=== PATIENT | female | born 1970 | race Caucasian/White ===

== ENCOUNTER 2019-12-02 22:22 | Emergency (ER) | payer OTHER ==
[~2019-12-02] VITALS: Ht 172.7 cm; Wt 2.5 kg
[2019-12-02 23:27] LABS: Basophils # (auto) 0 10 ^3/uL (0-0.2); Basophils % (auto) 0.4 % (0.0-2.0); Eosinophils # (auto) 0 10 ^3/uL (0-0.8); Eosinophils % (auto) 0.4 % (0.0-7.0); Hematocrit 46.8 % (36.0-46.0); Hemoglobin 16.5 g/dL (12.2-16.2); Lymphocytes # (auto) 1.3 10 ^3/uL (0.4-5.4); Lymphocytes % (auto) 14.4 % (10.0-50.0); Mean Corpuscular Hemoglobin 32.6 pg (28.0-32.0); Mean Corpuscular Hgb Conc. 35.3 g/dL (32.0-36.0); Mean Corpuscular Volume 92.3 fL (80.0-100.0); Monocytes # (auto) 0.5 10 ^3/uL (0-1.3); Monocytes % (auto) 5.4 % (0.0-12.0); Neutrophils # (auto) 7.3 10 ^3/uL (1.6-8.6); Neutrophils % (auto) 79.4 % (37.0-80.0); Nucleated Red Blood Cells % 0.1 %; Platelet Count (auto) 190 10^3/uL (140-450); Red Blood Cells 5.07 10^6/uL (4.0-5.20); Red Cell Distribution Width 14.4 % (11.8-14.3); White Blood Cell 9.1 10^3/uL (4.4-10.8)
[2019-12-02 23:34] LABS: INR 0.95 (0.9-1.15); Partial Thromboplastin Time 25.1 sec (23.0-31.2)
[2019-12-02 23:38] LABS: Albumin 4.1 g/dL (3.4-5.0); Anion Gap 9 (5-15); Blood Urea Nitrogen 12 mg/dL (7-18); Calcium 9.1 mg/dL (8.5-10.1); Carbon Dioxide 25 mmol/L (21-32); Chloride 100 mmol/L (98-107); Glucose 341 mg/dL (74-106); Potassium 3.3 mmol/L (3.5-5.1); Sodium 134 mmol/L (136-145)
[2019-12-02 23:40] LABS: Alanine Aminotransferase 18 U/L (13-56); Aspartate Aminotransferase 11 U/L (15-37); BUN/Creatinine Ratio 14.3; GFR African American 93 mL/min; GFR Non-African American 77 mL/min
[2019-12-02 23:45] LABS: Alkaline Phosphatase 86 U/L (45-117); Bilirubin, Total 0.7 mg/dL (0.2-1.0); Total Protein 7.7 g/dL (6.4-8.2)
[2019-12-03 03:12] VITALS: BP 147/85
== END 2019-12-03 03:14 | disposition home or self-care (01) ==
LOC: ER 22:27
DX: R07.89 Other chest pain (principal); I10 Essential (primary) hypertension
CPT/HCPCS: 36415; 71045; 80053; 83735; 84484; 85025; 85379; 85610; 85730; 93005

== ENCOUNTER 2020-11-18 12:13 | Inpatient (IN) | payer OTHER ==
[~2020-11-18] VITALS: Ht 172.7 cm; Wt 67.6 kg
[2020-11-18] MEDS ORDERED: SODIUM CHLORIDE 0.9% 1,000 ML IV ONE ×2 (12:30)
[2020-11-18] MEDS ORDERED: InsuLIN REG 1unit/0.01ml Soln (100units/ml) IV ONE (12:30)
[2020-11-18] MEDS ORDERED: PROCHLORPERAZINE EDISYLATE 5 MG/ML 2ML VIAL IV ONE (12:30)
[2020-11-18] MEDS ORDERED: LABETALOL HCL 5 MG/ML 4ML SYRINGE IV ONE ×2 (13:30→18:15)
[2020-11-18] MEDS ORDERED: MORPHINE SULFATE 4 MG/ML SYR/VIAL IV ONE (13:45)
[2020-11-18 13:48] LABS: Eosinophils # (auto) 0 10 ^3/uL (0-0.8); Mean Corpuscular Volume 94.6 fL (80.0-100.0); Monocytes # (auto) 0.1 10 ^3/uL (0-1.3); Red Cell Distribution Width 13.9 % (11.8-14.3)
[2020-11-18 13:49] LABS: Basophils # (auto) 0 10 ^3/uL (0-0.2); Basophils % (auto) 0.2 % (0.0-2.0); Hemoglobin 19.4 g/dL (12.2-16.2); Lymphocytes # (auto) 0.4 10 ^3/uL (0.4-5.4); Lymphocytes % (auto) 2.4 % (10.0-50.0); Mean Corpuscular Hemoglobin 31.8 pg (28.0-32.0); Mean Corpuscular Hgb Conc. 33.6 g/dL (32.0-36.0); Monocytes % (auto) 0.6 % (0.0-12.0); Neutrophils # (auto) 15.1 10 ^3/uL (1.6-8.6); Neutrophils % (auto) 96.8 % (37.0-80.0); Nucleated Red Blood Cells % 0.1 %; White Blood Cell 15.6 10^3/uL (4.4-10.8)
[2020-11-18 13:51] LABS: Hematocrit 57.7 % (36.0-46.0)
[2020-11-18 14:08] LABS: Urine Bacteria NONE SEEN /hpf (None Seen); Urine Blood 2+ /uL (Negative); Urine Hyaline Cast FEW /lpf (0 - 2); Urine Mucus FEW (None Seen); Urine Specific Gravity 1.021 (1.001-1.035); Urine WBC 1 /hpf (0 - 5)
[2020-11-18 14:08] LABS: Albumin 4.5 g/dL (3.4-5.0); Calcium 9.2 mg/dL (8.5-10.1); Potassium 3.7 mmol/L (3.5-5.1)
[2020-11-18 14:12] LABS: Bilirubin, Total 0.6 mg/dL (0.2-1.0); Total Protein 8.8 g/dL (6.4-8.2)
[2020-11-18] MEDS ORDERED: SODIUM BICARBONATE 8.4 % INJ 50ML VIAL IV ONE (14:15)
[2020-11-18] MEDS ORDERED: INSULIN LANTUS (GLARGINE) 1 /0.01ml (100units/ml) SC ONE ×2 (14:15→15:30)
[2020-11-18] MEDS ORDERED: InsuLIN R (HUMAN) 100 UNITS in SODIUM CHL 0.9% 99 ML IV SCH (14:15)
[2020-11-18] MEDS ORDERED: DEXTROSE (50%) 50ML SYRG IV PRN ×2 (14:15→15:45)
[2020-11-18 14:44] LABS: BUN/Creatinine Ratio 20.6
[2020-11-18] MEDS ORDERED: ACCU-CHEK COMFORT CURVE STRIP VI SCH (15:00)
[2020-11-18] MEDS ORDERED: MORPHINE SULF INJ 2 MG/ML SYRINGE 1ML IV PRN ×2 (15:30→15:45)
[2020-11-18] MEDS ORDERED: NITROGLYCERIN 0.4 MG SL TAB SL PRN (15:30)
[2020-11-18] MEDS ORDERED: HYDROmorphone HCL 2 MG/ML VL IV PRN (15:45)
[2020-11-18] MEDS ORDERED: PANTOPRAZOLE 40 MG/10 ML VIAL INJ IV ONE (15:45)
[2020-11-18 16:22] LABS: BUN/Creatinine Ratio 23.6; Calcium 8.9 mg/dL (8.5-10.1); Potassium 3.1 mmol/L (3.5-5.1)
[2020-11-18] MEDS: InsuLIN R (HUMAN) 100 UNITS in SODIUM CHL 0.9% 99 ML IV SCH ×3 (16:23→19:52)
[2020-11-18] MEDS: ACCU-CHEK COMFORT CURVE STRIP VI SCH ×4 (16:23→22:24)
[2020-11-18 16:29] LABS: Amylase 309 U/L (25-115)
[2020-11-18 16:32] LABS: Creatine Kinase IFCC 156 U/L (26-192)
[2020-11-18 16:43] LABS: Lipase 3251 U/L (73-393)
[2020-11-18] MEDS: SODIUM CHLORIDE 0.9% 1,000 ML IV SCH ×3 (16:44→21:30)
[2020-11-18] MEDS: MORPHINE SULF INJ 2 MG/ML SYRINGE 1ML IV PRN ×2 (17:16→21:20)
[2020-11-18] MEDS: PROMETHAZINE HCL 25 MG/ML 1ML IV PRN ×2 (17:16→21:20)
[2020-11-18 17:31] LABS: Alcohol, Urine < 3.0 mg/dL (0-10); Amphetamine Screen, Urine NEGATIVE (NEGATIVE); Barbiturate Scree,Urine NEGATIVE (NEGATIVE); Benzodiazephine Screen, Urine NEGATIVE (NEGATIVE); Cannabinoid Screen, Urine POSITIVE (NEGATIVE); Cocaine Screen, Urine NEGATIVE (NEGATIVE); Opiate Scree,Urine NEGATIVE (NEGATIVE); Phencyclidine Screen, Urine NEGATIVE (NEGATIVE)
[2020-11-18] MEDS ORDERED: LABETALOL HCL 5 MG/ML 4ML SYRINGE IV PRN (18:15)
[2020-11-18] MEDS ORDERED: SODIUM CHLORIDE 0.9% 1,000 ML IV SCH (19:30)
[2020-11-18] MEDS ORDERED: ATORVASTATIN 20 MG TAB PO SCH (22:00)
[2020-11-18 22:22] LABS: BUN/Creatinine Ratio 24.7
[2020-11-18] MEDS: CARVEDILOL 3.125 MG TAB PO SCH (22:28)
[2020-11-19] MEDS: MORPHINE SULF INJ 2 MG/ML SYRINGE 1ML IV PRN ×2 (01:34→06:10)
[2020-11-19] MEDS: PROMETHAZINE HCL 25 MG/ML 1ML IV PRN ×2 (01:34→06:10)
[2020-11-19] MEDS: ACCU-CHEK COMFORT CURVE STRIP VI SCH ×8 (01:37→10:17)
[2020-11-19] MEDS: SODIUM CHLORIDE 0.9% 1,000 ML IV SCH ×2 (04:18→11:39)
[2020-11-19 07:08] LABS: Albumin 3.7 g/dL (3.4-5.0); Calcium 9.3 mg/dL (8.5-10.1)
[2020-11-19 07:15] LABS: BUN/Creatinine Ratio 22.4; Bilirubin, Total 0.8 mg/dL (0.2-1.0); Total Protein 7.4 g/dL (6.4-8.2)
[2020-11-19 07:26] LABS: Potassium 2.9 mmol/L (3.5-5.1)
[2020-11-19] MEDS ORDERED: POTASSIUM CHL 20 Meq TABLET PO ONE (07:30)
[2020-11-19 07:34] LABS: Basophils # (auto) 0.1 10 ^3/uL (0-0.2); Basophils % (auto) 0.6 % (0.0-2.0); Eosinophils # (auto) 0 10 ^3/uL (0-0.8); Hematocrit 49.8 % (36.0-46.0); Lymphocytes # (auto) 1.3 10 ^3/uL (0.4-5.4); Lymphocytes % (auto) 11.1 % (10.0-50.0); Mean Corpuscular Hemoglobin 32.3 pg (28.0-32.0); Mean Corpuscular Hgb Conc. 36.2 g/dL (32.0-36.0); Mean Corpuscular Volume 89.3 fL (80.0-100.0); Monocytes % (auto) 8.5 % (0.0-12.0); Neutrophils # (auto) 9.2 10 ^3/uL (1.6-8.6); Neutrophils % (auto) 79.8 % (37.0-80.0); Nucleated Red Blood Cells % 0.3 %; Red Blood Cells 5.57 10^6/uL (4.0-5.20); Red Cell Distribution Width 13.8 % (11.8-14.3); White Blood Cell 11.5 10^3/uL (4.4-10.8)
[2020-11-19] MEDS ORDERED: NITROGLYCERIN 0.2MG/HR TOPICAL PATCH TD SCH (10:00)
[2020-11-19] MEDS ORDERED: PANTOPRAZOLE 40 MG/10 ML VIAL INJ IV SCH (10:00)
[2020-11-19] MEDS ORDERED: INSULIN LANTUS (GLARGINE) 1 /0.01ml (100units/ml) SC SCH ×2 (10:00)
[2020-11-19] MEDS: CARVEDILOL 3.125 MG TAB PO SCH (10:12)
[2020-11-19 10:24] LABS: BUN/Creatinine Ratio 26.5; Calcium 8.9 mg/dL (8.5-10.1)
[2020-11-19 10:30] LABS: Potassium 2.9 mmol/L (3.5-5.1)
[2020-11-19] MEDS ORDERED: POTASSIUM EFFERVESENT TAB 25 MEQ GT ONE (11:00)
[2020-11-19] MEDS ORDERED: POTASSIUM CHLORIDE 20 MEQ, LIDOCAINE 1% (LOCAL ANESTH.) 2 ML in SODIUM CHL 0.9% 100 ML IV ONE (11:00)
[2020-11-19] MEDS ORDERED: DEXTROSE (50%) 50ML SYRG IV PRN (11:15)
[2020-11-19] MEDS ORDERED: InsuLIN REG 1unit/0.01ml Soln (100units/ml) SC SCH ×2 (11:30→22:00)
[2020-11-19] MEDS ORDERED: ACCU-CHEK COMFORT CURVE STRIP VI SCH (11:30)
[2020-11-19 13:29] VITALS: BP 153/78
[2020-11-19] MEDS ORDERED: ALPR1TAB7 PO (13:31)
[2020-11-19] MEDS ORDERED: ACYC-163 PO (13:31)
[2020-11-19] MEDS ORDERED: ATOR40TA52 PO (13:31)
[2020-11-19] MEDS ORDERED: MET25T PO (13:31)
[2020-11-19] MEDS ORDERED: AMLO-496 PO (13:31)
== END 2020-11-19 14:37 | disposition home or self-care (01) | DRG 637 ==
LOC: EDBD 12:13 → ER 12:13 → TELE 15:22
PROVIDERS: ADMIT Internal Medicine; ATTEND Internal Medicine
DX: E11.10 Type 2 diabetes mellitus with ketoacidosis without coma (principal); K85.90 Acute pancreatitis without necrosis or infection, unspecified; N17.0 Acute kidney failure with tubular necrosis; Z20.822 Contact with and (suspected) exposure to COVID-19; E11.22 Type 2 diabetes mellitus with diabetic chronic kidney disease; E11.43 Type 2 diabetes mellitus with diabetic autonomic (poly)neuropathy; E78.5 Hyperlipidemia, unspecified; E87.6 Hypokalemia; I12.9 Hypertensive chronic kidney disease with stage 1 through stage 4 chronic kidney disease, or unspecified chronic kidney disease; K31.84 Gastroparesis; N18.9 Chronic kidney disease, unspecified; E66.9 Obesity, unspecified; R79.89 Other specified abnormal findings of blood chemistry; E11.65 Type 2 diabetes mellitus with hyperglycemia; E11.21 Type 2 diabetes mellitus with diabetic nephropathy; I25.2 Old myocardial infarction; Z79.84 Long term (current) use of oral hypoglycemic drugs; Z98.84 Bariatric surgery status; Z68.22 Body mass index [BMI] 22.0-22.9, adult
CPT/HCPCS: 36415; 36600; 71045; 74176; 80048; 80053; 80061; 80307; 81001; 82010; 82150; 82550; 82805; 82962; 83036; 83690; 83880; 84484; 85025; 86141; 87426; C9113; G0378; J1815; J2001; J3490

== ENCOUNTER 2022-04-28 04:03 | Inpatient (IN) | payer OTHER ==
[2022-04-28] VITALS (9 sets, daily range): BP systolic 92–148; BP diastolic 43–88
[~2022-04-28] VITALS: Ht 165.1 cm; Wt 96.0 kg
[~2022-04-28 04:03] MED LIST: ACYC-163 PO; ALPR1TAB7 PO; AMLO-496 PO; ATOR40TA52 PO; MET25T PO
[2022-04-28 05:03] LABS: Basophils # (auto) 0 10 ^3/uL (0-0.2); Basophils % (auto) 0.2 % (0.0-2.0); Eosinophils # (auto) 0 10 ^3/uL (0-0.8); Hematocrit 46.2 % (36.0-46.0); Hemoglobin 15.3 g/dL (12.2-16.2); Lymphocytes # (auto) 0.8 10 ^3/uL (0.4-5.4); Mean Corpuscular Hemoglobin 32.2 pg (28.0-32.0); Mean Corpuscular Hgb Conc. 33.1 g/dL (32.0-36.0); Mean Corpuscular Volume 97.2 fL (80.0-100.0); Monocytes # (auto) 0.2 10 ^3/uL (0-1.3); Monocytes % (auto) 2.2 % (0.0-12.0); Neutrophils # (auto) 7.5 10 ^3/uL (1.6-8.6); Neutrophils % (auto) 88.6 % (37.0-80.0); Red Blood Cells 4.75 10^6/uL (4.0-5.20); Red Cell Distribution Width 14.8 % (11.8-14.3); White Blood Cell 8.5 10^3/uL (4.4-10.8)
[2022-04-28 05:06] LABS: Albumin 4.5 g/dL (3.4-5.0); Calcium 9.6 mg/dL (8.5-10.1); Potassium 4.3 mmol/L (3.5-5.1)
[2022-04-28 05:09] LABS: Bilirubin, Total 0.9 mg/dL (0.2-1.0); Total Protein 7.4 g/dL (6.4-8.2)
[2022-04-28] MEDS ORDERED: MORPHINE SULFATE INJ 2 MG/ml SYRG IV ONE ×2 (05:15→06:15)
[2022-04-28] MEDS ORDERED: ONDANSETRON HCL 4 MG/2 ML VIAL IV ONE (05:15)
[2022-04-28] MEDS ORDERED: NITROGLYCERIN 0.4 MG SL TAB SL ONE (06:00)
[2022-04-28] MEDS ORDERED: HEPARIN SODIUM (PORCINE) 5000 UNITS/ML 1ML VIAL IV ONE (06:15)
[2022-04-28] MEDS ORDERED: DEXTROSE (50%) 50ML SYRG IV PRN ×2 (06:30→11:15)
[2022-04-28] MEDS ORDERED: MAALOX PLUS or MAALOX 30 ML PO ONE (06:30)
[2022-04-28] MEDS ORDERED: NITROGLYCERIN 0.4 MG SL TAB SL PRN ×2 (06:30)
[2022-04-28] MEDS ORDERED: LORazepam 0.5 MG TAB PO PRN (06:30)
[2022-04-28] MEDS ORDERED: MORPHINE SULFATE 4 MG/ML SYR/VIAL IV PRN (06:30)
[2022-04-28] MEDS ORDERED: MORPHINE SULFATE INJ 2 MG/ml SYRG IV PRN (06:30)
[2022-04-28] MEDS ORDERED: ACETAMINOPHEN 325 MG TAB PO PRN (06:30)
[2022-04-28] MEDS ORDERED: SODIUM CHLORIDE 0.9% 1,000 ML IV SCH (06:30)
[2022-04-28 08:00] LABS: Urine Bacteria FEW /hpf (None Seen); Urine Blood Negative /uL (Negative); Urine Specific Gravity 1.025 (1.001-1.035); Urine WBC 3 /hpf (0 - 5)
[2022-04-28] MEDS ORDERED: ACCU-CHEK COMFORT CURVE STRIP VI SCH (08:00)
[2022-04-28] MEDS ORDERED: InsuLIN REG 1unit/0.01ml Soln (100units/ml) SC SCH (08:00)
[2022-04-28] MEDS ORDERED: MIDAZOLAM HCL 2MG/2ML 2ml VIAL (1mg/ml) ONE ×3 (08:17→08:49)
[2022-04-28] MEDS ORDERED: HEPARIN SODIUM (PORCINE) 5000 UNITS/ML 1ML VIAL ONE (08:17)
[2022-04-28] MEDS ORDERED: VERAPAMIL 2.5MG/ML INJ 2ML VIAL IV ONE (08:17)
[2022-04-28] MEDS ORDERED: fentaNYL CITRATE 100 MCG/2 ML VL ONE ×2 (08:17→08:50)
[2022-04-28] MEDS ORDERED: NITROGLYCERIN 5MG/ML 10ML VIAL IV ONE (08:17)
[2022-04-28] MEDS ORDERED: ANGIOMAX 250 MG VIAL IV ONE (08:17)
[2022-04-28] MEDS ORDERED: ATROPINE SULF 1 MG/10ml SYR ONE (08:18)
[2022-04-28] MEDS ORDERED: SODIUM CHL 0.9% 100 ML ONE (08:18)
[2022-04-28] MEDS ORDERED: diphenhdrAMINE HCL 50 MG/1 ML VL ONE (08:40)
[2022-04-28] MEDS ORDERED: CLOPIDOGREL BISULFATE 75 MG TAB ONE (09:11)
[2022-04-28] MEDS ORDERED: ASPirin 81 mg TAB ONE (09:11)
[2022-04-28] MEDS: CLOPIDOGREL BISULFATE 75 MG TAB PO SCH (09:18)
[2022-04-28] MEDS: ASPirin 81 mg TAB PO SCH (09:18)
[2022-04-28] MEDS ORDERED: ENOXAPARIN SOD 80 MG/0.8ML SYRINGE SC SCH (10:00)
[2022-04-28] MEDS: METOPROLOL TARTRATE 25 MG TAB PO SCH ×2 (13:16→23:19)
[2022-04-28] MEDS: DOCUSATE SOD 100 MG CAP PO SCH (13:16)
[2022-04-28] MEDS: LISINOPRIL 5 MG TAB PO SCH (13:17)
[2022-04-28] MEDS: ACCU-CHEK COMFORT CURVE STRIP VI SCH ×3 (13:18→22:00)
[2022-04-28] MEDS: InsuLIN REG 1unit/0.01ml Soln (100units/ml) SC SCH ×3 (13:25→23:22)
[2022-04-28] MEDS: HYDROcodone-ACET 5/325MG TAB PO PRN (15:09)
[2022-04-28] MEDS: CALCIUM CARB 500 MG CHEW TAB PO PRN ×2 (18:07→23:29)
[2022-04-28] MEDS: ONDANSETRON HCL 4 MG/2 ML VIAL IV PRN (21:33)
[2022-04-28] MEDS: ATORVASTATIN 20 MG TAB PO SCH (23:18)
[2022-04-28] MEDS: ZOLPIDEM TARTRATE 5 MG TAB PO PRN (23:19)
[2022-04-29] MEDS: HYDROcodone-ACET 5/325MG TAB PO PRN ×2 (04:26→13:47)
[2022-04-29] MEDS: ONDANSETRON HCL 4 MG/2 ML VIAL IV PRN (04:51)
[2022-04-29 05:00] VITALS: BP 143/91
[2022-04-29] MEDS: InsuLIN REG 1unit/0.01ml Soln (100units/ml) SC SCH ×4 (06:19→22:32)
[2022-04-29] MEDS: ACCU-CHEK COMFORT CURVE STRIP VI SCH ×4 (06:22→21:09)
[2022-04-29 07:22] LABS: Basophils # (auto) 0 10 ^3/uL (0-0.2); Eosinophils # (auto) 0 10 ^3/uL (0-0.8); Eosinophils % (auto) 0.1 % (0.0-7.0); Hematocrit 44.1 % (36.0-46.0); Hemoglobin 15.2 g/dL (12.2-16.2); Lymphocytes # (auto) 1.3 10 ^3/uL (0.4-5.4); Lymphocytes % (auto) 10.3 % (10.0-50.0); Mean Corpuscular Hemoglobin 33.1 pg (28.0-32.0); Mean Corpuscular Hgb Conc. 34.5 g/dL (32.0-36.0); Mean Corpuscular Volume 95.8 fL (80.0-100.0); Monocytes # (auto) 0.8 10 ^3/uL (0-1.3); Monocytes % (auto) 6.3 % (0.0-12.0); Neutrophils # (auto) 10.3 10 ^3/uL (1.6-8.6); Neutrophils % (auto) 83.3 % (37.0-80.0); Red Blood Cells 4.61 10^6/uL (4.0-5.20); Red Cell Distribution Width 14.6 % (11.8-14.3); White Blood Cell 12.4 10^3/uL (4.4-10.8)
[2022-04-29 07:36] LABS: Calcium 9.8 mg/dL (8.5-10.1); Potassium 4.4 mmol/L (3.5-5.1)
[2022-04-29 07:40] LABS: BUN/Creatinine Ratio 22.8
[2022-04-29 09:00] VITALS: BP 134/66
[2022-04-29] MEDS: DOCUSATE SOD 100 MG CAP PO SCH (10:00)
[2022-04-29] MEDS: CLOPIDOGREL BISULFATE 75 MG TAB PO SCH (12:56)
[2022-04-29 12:57] VITALS: BP 120/67
[2022-04-29] MEDS ORDERED: TICAGRELOR 90 MG TAB PO ONE (13:00)
[2022-04-29] MEDS: ASPirin 81 mg TAB PO SCH (13:37)
[2022-04-29] MEDS: METOPROLOL TARTRATE 25 MG TAB PO SCH ×2 (13:38→22:16)
[2022-04-29] MEDS: LISINOPRIL 5 MG TAB PO SCH (13:38)
[2022-04-29] MEDS: PROMETHAZINE HCL 25 MG/ML 1ML IV PRN ×3 (13:40→22:16)
[2022-04-29 17:00] VITALS: BP 115/52
[2022-04-29 22:00] VITALS: BP 149/79
[2022-04-29] MEDS: TICAGRELOR 90 MG TAB PO SCH (22:15)
[2022-04-29] MEDS: ATORVASTATIN 20 MG TAB PO SCH (22:30)
[2022-04-30] MEDS: PROMETHAZINE HCL 25 MG/ML 1ML IV PRN ×5 (03:58→20:18)
[2022-04-30 05:00] VITALS: BP 134/82
[2022-04-30] MEDS: ACCU-CHEK COMFORT CURVE STRIP VI SCH ×4 (06:27→21:58)
[2022-04-30] MEDS: InsuLIN REG 1unit/0.01ml Soln (100units/ml) SC SCH ×4 (06:27→21:59)
[2022-04-30 09:00] VITALS: BP_SYST 150; BP_SYST 161; BP_DIAS 80; BP_DIAS 90
[2022-04-30] MEDS: TICAGRELOR 90 MG TAB PO SCH ×2 (09:38→21:57)
[2022-04-30] MEDS: HYDROcodone-ACET 5/325MG TAB PO PRN ×2 (09:38→16:27)
[2022-04-30] MEDS: DOCUSATE SOD 100 MG CAP PO SCH (09:38)
[2022-04-30] MEDS: LISINOPRIL 5 MG TAB PO SCH (09:39)
[2022-04-30] MEDS: METOPROLOL TARTRATE 25 MG TAB PO SCH (09:41)
[2022-04-30] MEDS: ASPirin 81 mg TAB PO SCH (09:42)
[2022-04-30 13:00] VITALS: BP 143/79
[2022-04-30 15:32] LABS: Alanine Aminotransferase 21 U/L (13-56); Albumin 3.8 g/dL (3.4-5.0); Amylase 68 U/L (25-115); Anion Gap 21 (5-15); Aspartate Aminotransferase 38 U/L (15-37); BUN/Creatinine Ratio 18.1; Blood Urea Nitrogen 15 mg/dL (7-18); Calcium 9.5 mg/dL (8.5-10.1); Carbon Dioxide 12 mmol/L (21-32); Chloride 102 mmol/L (98-107); GFR African American 93 mL/min; GFR Non-African American 77 mL/min; Glucose 178 mg/dL (74-106); Lipase 223 U/L (73-393); Potassium 4.1 mmol/L (3.5-5.1); Sodium 135 mmol/L (136-145)
[2022-04-30 15:35] LABS: Alkaline Phosphatase 78 U/L (45-117); Basophils # (auto) 0 10 ^3/uL (0-0.2); Basophils % (auto) 0.3 % (0.0-2.0); Bilirubin, Total 1.1 mg/dL (0.2-1.0); Eosinophils # (auto) 0 10 ^3/uL (0-0.8); Hematocrit 48.1 % (36.0-46.0); Hemoglobin 16.6 g/dL (12.2-16.2); Lymphocytes % (auto) 10.8 % (10.0-50.0); Mean Corpuscular Hemoglobin 33.7 pg (28.0-32.0); Mean Corpuscular Hgb Conc. 34.4 g/dL (32.0-36.0); Mean Corpuscular Volume 98.1 fL (80.0-100.0); Monocytes # (auto) 0.5 10 ^3/uL (0-1.3); Monocytes % (auto) 5.8 % (0.0-12.0); Neutrophils # (auto) 7.5 10 ^3/uL (1.6-8.6); Neutrophils % (auto) 83.1 % (37.0-80.0); Nucleated Red Blood Cells % 0.1 %; Red Blood Cells 4.91 10^6/uL (4.0-5.20); Red Cell Distribution Width 14.5 % (11.8-14.3); Total Protein 7.6 g/dL (6.4-8.2)
[2022-04-30] MEDS ORDERED: METOPROLOL TARTRATE 25 MG TAB PO ONE (16:15)
[2022-04-30] MEDS ORDERED: METOPROLOL SUCCINATE XL 50 MG TAB PO ONE (16:15)
[2022-04-30] MEDS: ALPRAZolam 0.5 MG TAB PO PRN (16:27)
[2022-04-30 17:00] VITALS: BP 141/75
[2022-04-30] MEDS: SODIUM CHLORIDE 0.9% 1,000 ML IV SCH ×2 (18:45→20:03)
[2022-04-30] MEDS: ATORVASTATIN 20 MG TAB PO SCH (21:57)
[2022-04-30] MEDS: ZOLPIDEM TARTRATE 5 MG TAB PO PRN (21:57)
[2022-04-30 22:00] VITALS: BP 142/82
[2022-05-01] MEDS: PROMETHAZINE HCL 25 MG/ML 1ML IV PRN ×4 (00:43→14:47)
[2022-05-01] MEDS: HYDROcodone-ACET 5/325MG TAB PO PRN ×4 (04:46→23:30)
[2022-05-01 05:00] VITALS: BP 109/55
[2022-05-01 05:53] LABS: Basophils # (auto) 0 10 ^3/uL (0-0.2); Basophils % (auto) 0.3 % (0.0-2.0); Eosinophils # (auto) 0 10 ^3/uL (0-0.8); Eosinophils % (auto) 0.2 % (0.0-7.0); Hematocrit 46.5 % (36.0-46.0); Hemoglobin 16.4 g/dL (12.2-16.2); Lymphocytes % (auto) 27.2 % (10.0-50.0); Mean Corpuscular Hemoglobin 33.6 pg (28.0-32.0); Mean Corpuscular Hgb Conc. 35.3 g/dL (32.0-36.0); Mean Corpuscular Volume 95.1 fL (80.0-100.0); Monocytes # (auto) 0.8 10 ^3/uL (0-1.3); Neutrophils # (auto) 4.4 10 ^3/uL (1.6-8.6); Neutrophils % (auto) 61.3 % (37.0-80.0); Nucleated Red Blood Cells % 0.1 %; Red Blood Cells 4.89 10^6/uL (4.0-5.20); Red Cell Distribution Width 14.1 % (11.8-14.3); White Blood Cell 7.2 10^3/uL (4.4-10.8)
[2022-05-01 05:59] LABS: Albumin 3.9 g/dL (3.4-5.0); Calcium 9.1 mg/dL (8.5-10.1)
[2022-05-01 06:03] LABS: BUN/Creatinine Ratio 17.7; Bilirubin, Total 1.2 mg/dL (0.2-1.0); Total Protein 6.8 g/dL (6.4-8.2)
[2022-05-01] MEDS: SODIUM CHLORIDE 0.9% 1,000 ML IV SCH ×2 (06:03→11:47)
[2022-05-01] MEDS: InsuLIN REG 1unit/0.01ml Soln (100units/ml) SC SCH ×4 (06:05→21:29)
[2022-05-01] MEDS: ACCU-CHEK COMFORT CURVE STRIP VI SCH ×4 (06:05→21:29)
[2022-05-01 09:00] VITALS: BP 147/71
[2022-05-01] MEDS: TICAGRELOR 90 MG TAB PO SCH ×2 (10:16→21:27)
[2022-05-01] MEDS: DOCUSATE SOD 100 MG CAP PO SCH (10:16)
[2022-05-01] MEDS: ASPirin 81 mg TAB PO SCH (10:16)
[2022-05-01] MEDS: METOPROLOL SUCCINATE XL 50 MG TAB PO SCH (10:17)
[2022-05-01] MEDS: LISINOPRIL 5 MG TAB PO SCH (10:17)
[2022-05-01] MEDS ORDERED: SUCRALFATE 1 GM/10 ML ORAL SUSP PO ONE (11:00)
[2022-05-01] MEDS ORDERED: PANTOPRAZOLE 40 MG/10 ML VIAL INJ IV ONE (11:00)
[2022-05-01] MEDS: SUCRALFATE 1 GM/10 ML ORAL SUSP PO SCH ×3 (11:28→21:28)
[2022-05-01 13:00] VITALS: BP 154/85
[2022-05-01 17:00] VITALS: BP 127/74
[2022-05-01] MEDS: PANTOPRAZOLE 40 MG/10 ML VIAL INJ IV SCH (21:27)
[2022-05-01] MEDS: ZOLPIDEM TARTRATE 5 MG TAB PO PRN (21:28)
[2022-05-01] MEDS: ATORVASTATIN 20 MG TAB PO SCH (21:28)
[2022-05-01 22:37] VITALS: BP 109/73
[2022-05-02] MEDS: SODIUM CHLORIDE 0.9% 1,000 ML IV SCH ×2 (00:20→06:48)
[2022-05-02 04:58] VITALS: BP 109/54
[2022-05-02 06:04] LABS: Basophils # (auto) 0 10 ^3/uL (0-0.2); Basophils % (auto) 0.3 % (0.0-2.0); Eosinophils # (auto) 0.1 10 ^3/uL (0-0.8); Eosinophils % (auto) 1.4 % (0.0-7.0); Hematocrit 40.1 % (36.0-46.0); Hemoglobin 14.2 g/dL (12.2-16.2); Lymphocytes % (auto) 36.6 % (10.0-50.0); Mean Corpuscular Hemoglobin 33.5 pg (28.0-32.0); Mean Corpuscular Hgb Conc. 35.3 g/dL (32.0-36.0); Mean Corpuscular Volume 94.9 fL (80.0-100.0); Monocytes # (auto) 0.5 10 ^3/uL (0-1.3); Monocytes % (auto) 9.2 % (0.0-12.0); Neutrophils # (auto) 2.8 10 ^3/uL (1.6-8.6); Neutrophils % (auto) 52.5 % (37.0-80.0); Red Blood Cells 4.23 10^6/uL (4.0-5.20); White Blood Cell 5.4 10^3/uL (4.4-10.8)
[2022-05-02] MEDS: SUCRALFATE 1 GM/10 ML ORAL SUSP PO SCH ×4 (06:08→22:30)
[2022-05-02] MEDS: ACCU-CHEK COMFORT CURVE STRIP VI SCH ×4 (06:09→22:38)
[2022-05-02] MEDS: InsuLIN REG 1unit/0.01ml Soln (100units/ml) SC SCH ×4 (06:10→22:39)
[2022-05-02 06:22] LABS: Calcium 8.2 mg/dL (8.5-10.1); Potassium 3.5 mmol/L (3.5-5.1)
[2022-05-02 06:23] LABS: BUN/Creatinine Ratio 15.3
[2022-05-02] MEDS: HYDROcodone-ACET 5/325MG TAB PO PRN ×2 (06:48→17:23)
[2022-05-02] MEDS: PROMETHAZINE HCL 25 MG/ML 1ML IV PRN (07:46)
[2022-05-02] MEDS ORDERED: POTASSIUM CHLORIDE 40 MEQ, LIDOCAINE 1% (LOCAL ANESTH.) 4 ML in SODIUM CHL 0.9% 250 ML IV ONE (08:30)
[2022-05-02] MEDS ORDERED: MAGNESIUM SULFATE 1GM/100ML 100 ML IV ONE (08:30)
[2022-05-02] MEDS: ASPirin 81 mg TAB PO SCH (08:38)
[2022-05-02] MEDS: TICAGRELOR 90 MG TAB PO SCH ×2 (08:38→22:30)
[2022-05-02] MEDS: DOCUSATE SOD 100 MG CAP PO SCH (08:38)
[2022-05-02] MEDS: PANTOPRAZOLE 40 MG/10 ML VIAL INJ IV SCH ×2 (08:38→22:29)
[2022-05-02] MEDS: METOPROLOL SUCCINATE XL 50 MG TAB PO SCH (08:38)
[2022-05-02] MEDS: LISINOPRIL 5 MG TAB PO SCH (08:38)
[2022-05-02] MEDS: ALPRAZolam 0.5 MG TAB PO PRN (08:38)
[2022-05-02 09:00] VITALS: BP 170/90
[2022-05-02 13:00] VITALS: BP 159/88
[2022-05-02] MEDS ORDERED: hydrALAZINE HCL 20 MG/ML VL IV PRN (14:45)
[2022-05-02 17:00] VITALS: BP 94/53
[2022-05-02 22:00] VITALS: BP 95/54
[2022-05-02] MEDS: ATORVASTATIN 20 MG TAB PO SCH (22:30)
[2022-05-02 23:30] VITALS: BP 99/66
[2022-05-03] MEDS: SODIUM CHLORIDE 0.9% 1,000 ML IV SCH (04:23)
[2022-05-03] MEDS: HYDROcodone-ACET 5/325MG TAB PO PRN (04:27)
[2022-05-03 04:29] VITALS: BP 101/50
[2022-05-03] MEDS: SUCRALFATE 1 GM/10 ML ORAL SUSP PO SCH ×2 (06:14→10:57)
[2022-05-03] MEDS: ACCU-CHEK COMFORT CURVE STRIP VI SCH ×2 (06:17→11:30)
[2022-05-03] MEDS: InsuLIN REG 1unit/0.01ml Soln (100units/ml) SC SCH ×2 (06:18→11:30)
[2022-05-03 09:03] VITALS: BP 116/72
[2022-05-03] MEDS: LISINOPRIL 5 MG TAB PO SCH (10:00)
[2022-05-03] MEDS ORDERED: MAGNESIUM OXIDE 400 MG TAB PO SCH (10:00)
[2022-05-03] MEDS ORDERED: SUCR1TAB22 PO (10:54)
[2022-05-03] MEDS ORDERED: PANT40TA2 PO (10:54)
[2022-05-03] MEDS ORDERED: PROM25TA5 PO (10:54)
[2022-05-03] MEDS: ASPirin 81 mg TAB PO SCH (10:57)
[2022-05-03] MEDS: METOPROLOL SUCCINATE XL 50 MG TAB PO SCH (10:58)
[2022-05-03] MEDS: DOCUSATE SOD 100 MG CAP PO SCH (10:58)
[2022-05-03] MEDS: TICAGRELOR 90 MG TAB PO SCH (10:58)
[2022-05-03] MEDS: PANTOPRAZOLE 40 MG/10 ML VIAL INJ IV SCH (10:58)
[2022-05-03 11:51] VITALS: BP 110/53
== END 2022-05-03 13:00 | disposition short-term general hospital (02) | DRG 246 ==
LOC: ER 04:03 → EDBD 04:03 → EDUNIT# 04:03 → TELE 06:39 → TELE-EAST 11:40
PROVIDERS: ADMIT Hospitalist; ATTEND Internal Medicine
PROC: 4A023N7 Measurement of Cardiac Sampling and Pressure, Left Heart, Percutaneous Approach (ICD-10-PCS; principal; 2022-04-28)
PROC: B2111ZZ Fluoroscopy of Multiple Coronary Arteries using Low Osmolar Contrast (ICD-10-PCS; 2022-04-28)
PROC: B2151ZZ Fluoroscopy of Left Heart using Low Osmolar Contrast (ICD-10-PCS; 2022-04-28)
PROC: 027034Z Dilation of Coronary Artery, One Artery with Drug-eluting Intraluminal Device, Percutaneous Approach (ICD-10-PCS; 2022-04-28)
PROC: B240ZZ3 Ultrasonography of Single Coronary Artery, Intravascular (ICD-10-PCS; 2022-04-28)
DX: I21.9 Acute myocardial infarction, unspecified (principal); N17.0 Acute kidney failure with tubular necrosis; E87.20 Acidosis, unspecified; I50.42 Chronic combined systolic (congestive) and diastolic (congestive) heart failure; Z20.822 Contact with and (suspected) exposure to COVID-19; E11.65 Type 2 diabetes mellitus with hyperglycemia; E78.5 Hyperlipidemia, unspecified; I11.0 Hypertensive heart disease with heart failure; E66.01 Morbid (severe) obesity due to excess calories; K29.70 Gastritis, unspecified, without bleeding; I25.10 Atherosclerotic heart disease of native coronary artery without angina pectoris; M79.7 Fibromyalgia; F41.9 Anxiety disorder, unspecified; K21.9 Gastro-esophageal reflux disease without esophagitis; Z95.5 Presence of coronary angioplasty implant and graft; Z68.33 Body mass index [BMI] 33.0-33.9, adult
CPT/HCPCS: 36415; 71045; 74176; 80048; 80053; 80061; 81001; 82150; 82962; 83036; 83605; 83690; 83735; 83880; 84443; 84484; 85025; 87426; 93005; 93306; 99152; 99153; C1874; C1887; C9113; G0378; J1815; J2001; J2250; J2405; J3490

== ENCOUNTER 2022-12-04 13:49 | Inpatient (IN) | payer OTHER ==
[~2022-12-04] VITALS: Ht 172.7 cm; Wt 102.5 kg
[~2022-12-04 13:49] MED LIST changes: -ACYC-163 PO; +ACYC1TAB2 PO; -AMLO-496 PO; +AMLO1TAB23 PO; +PANT40TA2 PO; +PROM25TA10 PO; +SUCR1TAB22 PO
[2022-12-04 14:23] LABS: Basophils # (auto) 0 10 ^3/uL (0-0.2); Basophils % (auto) 0.5 % (0.0-2.0); Eosinophils # (auto) 0.1 10 ^3/uL (0-0.8); Eosinophils % (auto) 1.6 % (0.0-7.0); Hematocrit 51.5 % (36.0-46.0); Hemoglobin 17.4 g/dL (12.2-16.2); Lymphocytes # (auto) 1.4 10 ^3/uL (0.4-5.4); Lymphocytes % (auto) 26.7 % (10.0-50.0); Mean Corpuscular Hemoglobin 32.8 pg (28.0-32.0); Mean Corpuscular Hgb Conc. 33.8 g/dL (32.0-36.0); Mean Corpuscular Volume 97.2 fL (80.0-100.0); Monocytes # (auto) 0.4 10 ^3/uL (0-1.3); Neutrophils # (auto) 3.4 10 ^3/uL (1.6-8.6); Neutrophils % (auto) 63.2 % (37.0-80.0); Nucleated Red Blood Cells % 0.3 %; Red Blood Cells 5.29 10^6/uL (4.0-5.20); Red Cell Distribution Width 14.9 % (11.8-14.3); White Blood Cell 5.4 10^3/uL (4.4-10.8)
[2022-12-04 14:41] LABS: Albumin 3.9 g/dL (3.4-5.0); Calcium 8.9 mg/dL (8.5-10.1); Potassium 3.9 mmol/L (3.5-5.1)
[2022-12-04 14:44] LABS: BUN/Creatinine Ratio 28.1 (10.0-20.0)
[2022-12-04 14:46] LABS: Total Protein 6.6 g/dL (6.4-8.2)
[2022-12-04] MEDS ORDERED: ONDANSETRON HCL 4 MG/2 ML VIAL IV ONE (15:30)
[2022-12-04] MEDS ORDERED: MORPHINE SULFATE 4 MG/ML SYR/VIAL IV ONE (15:30)
[2022-12-04 16:43] VITALS: PULSE 65
[2022-12-04 18:21] LABS: Cholesterol 117 mg/dL (< 200); Triglycerides 89 mg/dL (< 150)
[2022-12-04 18:23] LABS: HDL Cholesterol 66 mg/dL (40-59); LDL Cholesterol 49 mg/dL (< 100)
[2022-12-04 18:29] LABS: Basophils # (auto) 0 10 ^3/uL (0-0.2); Basophils % (auto) 0.7 % (0.0-2.0); Eosinophils # (auto) 0.1 10 ^3/uL (0-0.8); Eosinophils % (auto) 1.8 % (0.0-7.0); Hematocrit 51.9 % (36.0-46.0); Hemoglobin 17.6 g/dL (12.2-16.2); Lymphocytes # (auto) 1.7 10 ^3/uL (0.4-5.4); Lymphocytes % (auto) 26.7 % (10.0-50.0); Mean Corpuscular Hemoglobin 32.8 pg (28.0-32.0); Mean Corpuscular Hgb Conc. 33.9 g/dL (32.0-36.0); Mean Corpuscular Volume 96.7 fL (80.0-100.0); Monocytes # (auto) 0.4 10 ^3/uL (0-1.3); Monocytes % (auto) 6.9 % (0.0-12.0); Neutrophils % (auto) 63.9 % (37.0-80.0); Nucleated Red Blood Cells % 0.1 %; Red Blood Cells 5.36 10^6/uL (4.0-5.20); White Blood Cell 6.3 10^3/uL (4.4-10.8)
[2022-12-04] MEDS ORDERED: ATORVASTATIN 20 MG TAB PO ONE (18:30)
[2022-12-04] MEDS ORDERED: amLODIPine BESYLATE 5 MG TAB PO ONE (18:30)
[2022-12-04] MEDS ORDERED: ALPRAZolam 0.5 MG TAB PO ONE (22:00)
[2022-12-04] MEDS: MORPHINE SULFATE INJ 2 MG/ml SYRG IV PRN (23:14)
[2022-12-05] VITALS (7 sets, daily range): BP systolic 144–157; BP diastolic 57–70; PULSE 56–80; RESP 11–19; TEMP 97.7–98.1; O2SAT 93–99
[2022-12-05 03:15] LABS: Urine Bacteria NONE SEEN /hpf (None Seen); Urine Blood Negative /uL (Negative); Urine Clarity Clear (Clear); Urine Color Yellow (Yellow); Urine Protein, UAD Negative (Negative); Urine Specific Gravity 1.046 (1.001-1.035); Urine Urobilinogen Normal (Negative); Urine WBC <1 /hpf (0 - 5); Urine pH 5.5 (5.0-8.0)
[2022-12-05 04:11] LABS: Alcohol, Urine < 3.0 mg/dL (0-10); Amphetamine Screen, Urine NEGATIVE (NEGATIVE); Barbiturate Scree,Urine NEGATIVE (NEGATIVE); Benzodiazephine Screen, Urine POSITIVE (NEGATIVE); Cannabinoid Screen, Urine POSITIVE (NEGATIVE); Cocaine Screen, Urine NEGATIVE (NEGATIVE)
[2022-12-05 04:18] LABS: Opiate Scree,Urine POSITIVE (NEGATIVE); Phencyclidine Screen, Urine NEGATIVE (NEGATIVE)
[2022-12-05] MEDS: MORPHINE SULFATE INJ 2 MG/ml SYRG IV PRN ×3 (05:12→13:39)
[2022-12-05 07:06] LABS: Vitamin D, 25-Hydroxy 22.9 ng/mL (30.0-100.0)
[2022-12-05 08:49] LABS: BUN/Creatinine Ratio 33.3 (10.0-20.0)
[2022-12-05] MEDS ORDERED: PANTOPRAZOLE 40 MG TAB PO ONE (10:00)
[2022-12-05] MEDS ORDERED: SUCRALFATE 1 GM TAB PO ONE (10:00)
[2022-12-05] MEDS ORDERED: METOPROLOL TARTRATE 25 MG TAB PO ONE (10:00)
[2022-12-05] MEDS: ENOXAPARIN SOD 30 MG/0.3 ML SYRINGE SC SCH (10:10)
[2022-12-05 11:06] LABS: Calcitriol(125 di-OH Vit D) 42.3 pg/mL (24.8-81.5)
[2022-12-05] MEDS ORDERED: DEXTROSE (50%) 50ML SYRG IV PRN ×2 (16:45→18:30)
[2022-12-05] MEDS ORDERED: InsuLIN REG 1unit/0.01ml Soln (100units/ml) SC SCH ×2 (17:00→20:00)
[2022-12-05] MEDS ORDERED: ERGOCALCIFEROL 50,000 UNIT(1.25MG) CAP PO SCH (19:15)
[2022-12-05] MEDS ORDERED: ACCU-CHEK COMFORT CURVE STRIP VI SCH (20:00)
[2022-12-05] MEDS: NITROGLYCERIN 0.4 MG SL TAB SL PRN ×3 (21:09→21:25)
[2022-12-05] MEDS: ACCU-CHEK COMFORT CURVE STRIP VI SCH (21:34)
[2022-12-05] MEDS: InsuLIN REG 1unit/0.01ml Soln (100units/ml) SC SCH (21:39)
[2022-12-05] MEDS ORDERED: ATORVASTATIN 20 MG TAB PO SCH (22:00)
[2022-12-05] MEDS ORDERED: TICAGRELOR 90 MG TAB PO SCH (22:00)
[2022-12-06 05:00] VITALS: BP 152/76; PULSE 60; RESP 19; TEMP 97.7; O2SAT 98
[2022-12-06 05:57] LABS: Basophils # (auto) 0 10 ^3/uL (0-0.2); Basophils % (auto) 0.6 % (0.0-2.0); Eosinophils # (auto) 0.1 10 ^3/uL (0-0.8); Eosinophils % (auto) 2.4 % (0.0-7.0); Hematocrit 50.1 % (36.0-46.0); Hemoglobin 17.6 g/dL (12.2-16.2); Lymphocytes # (auto) 1.7 10 ^3/uL (0.4-5.4); Lymphocytes % (auto) 37.7 % (10.0-50.0); Mean Corpuscular Hemoglobin 33.5 pg (28.0-32.0); Mean Corpuscular Volume 95.6 fL (80.0-100.0); Monocytes # (auto) 0.4 10 ^3/uL (0-1.3); Monocytes % (auto) 10.2 % (0.0-12.0); Neutrophils # (auto) 2.2 10 ^3/uL (1.6-8.6); Neutrophils % (auto) 49.1 % (37.0-80.0); Nucleated Red Blood Cells % 0.1 %; Red Blood Cells 5.24 10^6/uL (4.0-5.20); Red Cell Distribution Width 14.5 % (11.8-14.3); White Blood Cell 4.4 10^3/uL (4.4-10.8)
[2022-12-06 06:14] LABS: Calcium 9.3 mg/dL (8.5-10.1); Potassium 3.5 mmol/L (3.5-5.1)
[2022-12-06] MEDS: ACCU-CHEK COMFORT CURVE STRIP VI SCH ×2 (06:18→12:26)
[2022-12-06] MEDS: InsuLIN REG 1unit/0.01ml Soln (100units/ml) SC SCH ×2 (06:21→12:27)
[2022-12-06] MEDS ORDERED: LEVOTHYROXINE SODIUM 50 MCG TAB PO SCH (07:00)
[2022-12-06 07:54] VITALS: BP 133/66; PULSE 54; TEMP 36.5
[2022-12-06 08:00] VITALS: PULSE 53; RESP 18; O2SAT 98
[2022-12-06] MEDS ORDERED: ADENOSINE 86 MG in GIVE UN-DILUTED 0 ML IV ONE (08:00)
[2022-12-06] MEDS ORDERED: DEXTROSE (50%) 50ML SYRG IV PRN (08:00)
[2022-12-06 08:40] LABS: COVID19 ANTIGEN SOFIA FIA NEGATIVE (NEGATIVE)
[2022-12-06] MEDS ORDERED: ASPirin 81 mg TAB PO SCH (10:00)
[2022-12-06] MEDS ORDERED: PANTOPRAZOLE 40 MG TAB PO SCH (10:00)
[2022-12-06] MEDS: ENOXAPARIN SOD 30 MG/0.3 ML SYRINGE SC SCH (10:32)
[2022-12-06] MEDS ORDERED: ACCU-CHEK COMFORT CURVE STRIP VI SCH (12:00)
[2022-12-06] MEDS ORDERED: InsuLIN REG 1unit/0.01ml Soln (100units/ml) SC SCH (12:00)
[2022-12-06 13:00] VITALS: BP 112/62; PULSE 75; RESP 18; TEMP 98.4; O2SAT 98
[2022-12-06] MEDS ORDERED: LEV50T PO (15:35)
[2022-12-06] MEDS ORDERED: ERGO1CAP23 PO (15:35)
[2022-12-06] MEDS ORDERED: EMPA1TAB PO (15:35)
[2022-12-06] MEDS ORDERED: ASPI-325 PO (15:35)
[2022-12-06] MEDS ORDERED: TICA1TAB PO (15:38)
[2022-12-06] MEDS ORDERED: TICAGRELOR 90 MG TAB PO ONE (16:00)
[2022-12-06 17:00] VITALS: BP 156/69; PULSE 71; RESP 18; TEMP 98.4; O2SAT 95
[2022-12-06 17:24] VITALS: BP 133/66; PULSE 54; TEMP 36.9
[2022-12-06] MEDS ORDERED: TICAGRELOR 90 MG TAB PO SCH (22:00)
== END 2022-12-06 18:06 | disposition home or self-care (01) | DRG 303 ==
LOC: EDBD 13:49 → ER 13:49 → TELE 17:59 → TELE-WESTW 12-05 12:40
PROVIDERS: ADMIT Internal Medicine; ATTEND Internal Medicine
DX: I25.10 Atherosclerotic heart disease of native coronary artery without angina pectoris (principal); I24.9 Acute ischemic heart disease, unspecified; I50.42 Chronic combined systolic (congestive) and diastolic (congestive) heart failure; E11.9 Type 2 diabetes mellitus without complications; I11.0 Hypertensive heart disease with heart failure; E03.9 Hypothyroidism, unspecified; E78.5 Hyperlipidemia, unspecified; F41.9 Anxiety disorder, unspecified; Z20.822 Contact with and (suspected) exposure to COVID-19; K21.9 Gastro-esophageal reflux disease without esophagitis; E66.01 Morbid (severe) obesity due to excess calories; Z98.61 Coronary angioplasty status; I25.2 Old myocardial infarction; Z68.34 Body mass index [BMI] 34.0-34.9, adult; Z88.8 Allergy status to other drugs, medicaments and biological substances
CPT/HCPCS: 36415; 71045; 71046; 78452; 80048; 80053; 80061; 80307; 81001; 82306; 82962; 83036; 83735; 83880; 84443; 84484; 85025; 87426; 93005; 93017; 93306; 96372; 96374; 96375; G0378; J0153; J1815; J2405

== ENCOUNTER 2024-01-27 11:08 | Emergency (ER) | payer OTHER ==
[~2024-01-27] VITALS: Ht 172.7 cm; Wt 80.0 kg
[~2024-01-27 11:08] MED LIST changes: +ASPI-325 PO; +EMPA1TAB PO; +ERGO1CAP23 PO; +LEVO-848 PO; -PROM25TA10 PO; -SUCR1TAB22 PO; +SUCR1TAB31 PO; +TICA1TAB PO
[2024-01-27 11:46] LABS: Basophils # (auto) 0 10 ^3/uL (0-0.2); Basophils % (auto) 0.6 % (0.0-2.0); Eosinophils # (auto) 0.1 10 ^3/uL (0-0.8); Eosinophils % (auto) 2.1 % (0.0-7.0); Hematocrit 50.6 % (36.0-46.0); Hemoglobin 17.5 g/dL (12.2-16.2); Lymphocytes # (auto) 1.5 10 ^3/uL (0.4-5.4); Lymphocytes % (auto) 27.8 % (10.0-50.0); Mean Corpuscular Hemoglobin 33.5 pg (28.0-32.0); Mean Corpuscular Hgb Conc. 34.6 g/dL (32.0-36.0); Mean Corpuscular Volume 96.8 fL (80.0-100.0); Monocytes # (auto) 0.4 10 ^3/uL (0-1.3); Monocytes % (auto) 7.1 % (0.0-12.0); Neutrophils # (auto) 3.4 10 ^3/uL (1.6-8.6); Neutrophils % (auto) 62.4 % (37.0-80.0); Nucleated Red Blood Cells % 0.1 %; Platelet Count (auto) 195 10^3/uL (140-450); Red Blood Cells 5.23 10^6/uL (4.0-5.20); Red Cell Distribution Width 13.8 % (11.8-14.3); White Blood Cell 5.5 10^3/uL (4.4-10.8)
[2024-01-27 12:01] LABS: Alanine Aminotransferase 14 U/L (7-40); Alkaline Phosphatase 100 U/L (46-116); Anion Gap 6 (5-15); Aspartate Aminotransferase 12 U/L (13-40); BUN/Creatinine Ratio 19.7 (10.0-20.0); Blood Urea Nitrogen 13 mg/dL (9-23); Calcium 9.8 mg/dL (8.7-10.4); Carbon Dioxide 26 mmol/L (20-31); Chloride 109 mmol/L (98-107); Glucose 261 mg/dL (74-106); Potassium 4.3 mmol/L (3.5-5.1); Sodium 141 mmol/L (136-145)
[2024-01-27 12:02] LABS: Albumin 4.5 g/dL (3.2-4.8); Bilirubin, Total 0.5 mg/dL (0.2-1.0); Total Protein 6.7 g/dL (5.7-8.2)
[2024-01-27 15:38] VITALS: PULSE 60; RESP 15; O2SAT 95
[2024-01-27] MEDS: NITROGLYCERIN 0.4 MG SL TAB SL ONE ×2 (15:39→16:09)
[2024-01-27 16:19] VITALS: TEMP 98
[2024-01-27] MEDS: MORPHINE SULFATE INJ 2 MG/ml SYRG IV ONE (17:05)
[2024-01-27 17:41] VITALS: O2SAT 96
[2024-01-27 18:02] VITALS: BP 116/61; PULSE 68; RESP 16
== END 2024-01-27 18:08 | disposition short-term general hospital (02) ==
LOC: ER 11:08 → EDBD 11:08 → ER 18:08
DX: I20.0 Unstable angina (principal); E11.9 Type 2 diabetes mellitus without complications; Z88.8 Allergy status to other drugs, medicaments and biological substances; Z79.899 Other long term (current) drug therapy; Z79.84 Long term (current) use of oral hypoglycemic drugs; Z79.82 Long term (current) use of aspirin; Z98.890 Other specified postprocedural states
CPT/HCPCS: 36415; 71045; 80053; 84484; 85025; 93005; 96374; 99285; J2270